=== PATIENT | female | born 1940 | race Caucasian/White ===

== ENCOUNTER 2023-10-12 22:11 | Emergency (ER) | payer BC, MEDICARE ==
[~2023-10-12 22:11] MED LIST: Iopamidol 370 76% 100 ML VIAL ONE
[2023-10-12 23:04] LABS: #Basophils 0.06 10x3/uL (0.0-0.2); #Eosinphils 0.17 10x3/uL (0.0-0.5); #Monocytes 0.52 10x3/uL (0.0-1.1); #Neutrophils 3.06 10x3/uL (1.5-8.4); %Basophils 1.1 % (0.0-2.0); %Eosinophils 3.2 % (0.0-6.0); %Lymphocytes 28.2 % (18.0-47.0); %Monocytes 9.8 % (0.0-10.0); %Neutrophils 57.5 % (40.0-75.0); Hematocrit 37.2 % (34.9-44.5); Mean Corpuscular HGB CONC 34.9 g/dL (32.0-36.0); Mean Corpuscular Hemoglobin 33.4 pg (27.0-33.0); Mean Corpuscular Volume 95.6 fl (81.6-98.3); Mean Platelet Volume 9.2 fl (7.4-10.4); Platelet Count 217 10x3/uL (150-450); RBC Distribution Width 13.2 % (11.5-14.5); Red Blood Cell (RBC) Count 3.89 10x6/uL (3.90-5.03); White Blood Cell (WBC) Count 5.3 10x3/uL (3.5-10.5)
[2023-10-12 23:12] LABS: ALT (SGPT) 14 U/L (8-55); AST (SGOT) 21 U/L (5-34); Albumin 3.9 g/dL (3.4-4.8); Alkaline Phosphatase 51 U/L (40-110); Anion Gap 13 mmol/L (10-20); BUN (Urea Nitrogen) 17 mg/dL (9.8-20.1); Bilirubin, Total 0.3 mg/dL (0.2-1.2); Calc. Creatinine Clearance 0 mL/min (70-130); Calcium 9.8 mg/dL (7.8-10.44); Carbon Dioxide 26 mmol/L (23-31); Chloride 105 mmol/L (98-107); Estimated GFR 66; Globulin 3.5 g/dL (2.4-3.5); Glucose 108 mg/dL (83-110); Potassium 4.2 mmol/L (3.5-5.1); Protein, Total 7.4 g/dL (5.8-8.1); Sodium 140 mmol/L (136-145)
[2023-10-12 23:45] LABS: Bilirubin Neg (Negative); Blood, Urine 150 (Negative); Clarity Clear (Clear); Glucose, Urine (Dipstick) Normal (Negative); Ketone, Urine Negative (Negative); Leukocyte Negative (Negative); Nitrite Negative (Negative); Protein, Urine (Dipstick) Negative (Neg-Trace); Specific Gravity, Urine 1.015 (1.005-1.030); Urobilinogen Normal mg/dL (Less than 2)
[2023-10-12 23:55] LABS: Lipase 29 U/L (8-78); Magnesium 2.2 mg/dL (1.6-2.6)
[2023-10-13 00:07] LABS: CAUTI Indications for Culture Pelvic or flank pain; RBC/HPF None Seen HPF (0-3); Squamous Epithelial None Seen HPF (0-3); WBC/HPF 0-3 HPF (0-3)
[2023-10-13 00:08] LABS: Bacteria/HPF 1+ HPF (None Seen); Urine Culture Reflex No No
== END 2023-10-13 01:36 | disposition home or self-care (01) ==
LOC: CSHERS 22:11
DX: K59.09 Other constipation (principal)
CPT/HCPCS: 74177; 80053; 81001; 83690; 83735; 85025; Q9967

== ENCOUNTER 2023-12-20 08:31 | Outpatient (CLI) | payer MEDICARE ==
[2023-12-20] MEDS ORDERED: Magnevist 469MG/ML 20 ML VIAL ONE (10:26)
== END 2023-12-20 08:32 | disposition home or self-care (01) ==
LOC: CSHMRI 08:31
PROVIDERS: ATTEND Physician Assistant Medical
DX: K86.2 Cyst of pancreas (principal); R14.0 Abdominal distension (gaseous); R63.4 Abnormal weight loss
CPT/HCPCS: 74183; A9579